=== PATIENT | female | born 1970 | race Caucasian/White ===

== ENCOUNTER 2022-03-25 11:45 | Emergency (ER) | payer OTHER ==
[~2022-03-25] VITALS: Ht 165.1 cm; Wt 66.0 kg
[~2022-03-25 11:45] MED LIST: CALC1TAB4 PO; CYCL5TAB PO; ESCI5TAB PO; ESTR1TAB98 PO; ESZO3TAB24 PO; FERR325T23 MT; FOLI20CA PO; KEPP500 PO; MAGN250T10 PO; MIRT-90 PO; NALT380S2 IM; OMEP40CA20 PO
[2022-03-25 13:15] LABS: BASOPHILS % 1.3 % (0.0-2.0); EOSINOPHILS % 4.3 % (0.0-5.0); HEMATOCRIT. 40.2 % (36.0-48.0); HEMOGLOBIN. 13.3 g/dL (12.0-16.0); MEAN CORPUSCULAR VOLUME 96.9 fL (81.0-99.0); MEAN PLATELET VOLUME 6.9 fl (7.4-10.4); MONOCYTES % 4.4 % (2.0-8.0); PLATELET 337 x1000/uL (130-400); RED BLOOD CELL COUNT 4.15 mill/uL (4.2-5.4); RED CELL DISTRIBUTION WIDTH 15.2 % (11.6-14.6)
[2022-03-25 13:22] LABS: CHLORIDE 107 mEq/L (98-107)
[2022-03-25 13:30] LABS: ETHANOL BLOOD 240 mg/dL
[2022-03-25 15:33] LABS: CLARITY URINE CLEAR (CLEAR); COLOR URINE YELLOW (YELLOW); KETONES URINE NEGATIVE (NEGATIVE); LEUKOCYTE ESTERASE URINE 1+ (NEGATIVE); NITRITE URINE NEGATIVE (NEGATIVE); OCCULT BLOOD URINE NEGATIVE (NEGATIVE); PH URINE 6.5 (4.5-8.0); PROTEIN URINE NEGATIVE (NEGATIVE); SPECIFIC GRAVITY URINE 1.004 (1.005-1.030); UROBILINOGEN URINE 0.2 E.U./dL (0.2-1.0)
[2022-03-25 15:55] LABS: *AMPHETAMINES SCREEN URINE NEGATIVE (NEGATIVE); *BARBITURATES SCREEN URINE NEGATIVE (NEGATIVE); *BENZODIAZEPINES SCREEN URINE NEGATIVE (NEGATIVE); *COCAINE SCREEN URINE NEGATIVE (NEGATIVE); CANNABINOID URINE SCREEN NEGATIVE (NEGATIVE); METHADONE URINE SCREEN NEGATIVE (NEGATIVE); OPIATES URINE SCREEN NEGATIVE (NEGATIVE); PHENCYCLIDINE URINE SCREEN NEGATIVE (NEGATIVE)
[2022-03-25] MEDS ORDERED: LORAZEPAM 2MG/ML CPJ IV NR (19:30)
[2022-03-26] MEDS ORDERED: LORAZEPAM 1MG TABLET PO ONE (12:00)
[2022-03-26] MEDS ORDERED: CHLORDIAZEPOXIDE 25MG CAPSULE PO ONE (12:45)
[2022-03-26] MEDS ORDERED: CHLORDIAZEPOXIDE 25MG CAPSULE PO NR (13:00)
[2022-03-26 15:59] VITALS: BP 151/98
[2022-03-26] MEDS ORDERED: MIRTAZAPINE 15MG TABLET PO SCH (21:00)
== END 2022-03-26 17:00 ==
LOC: ER 11:45
DX: T51.0X2A Toxic effect of ethanol, intentional self-harm, initial encounter (principal); T42.4X2A Poisoning by benzodiazepines, intentional self-harm, initial encounter; F33.1 Major depressive disorder, recurrent, moderate; F10.229 Alcohol dependence with intoxication, unspecified; Y90.8 Blood alcohol level of 240 mg/100 ml or more; R00.0 Tachycardia, unspecified; I10 Essential (primary) hypertension; Z20.822 Contact with and (suspected) exposure to COVID-19; Z63.0 Problems in relationship with spouse or partner; G40.909 Epilepsy, unspecified, not intractable, without status epilepticus; Y92.89 Other specified places as the place of occurrence of the external cause
CPT/HCPCS: 36415; 80053; 80076; 80305; 80307; 80320; 80329; 81003; 85025; 93005; 96374; 99285; C9803; J2060; U0003; U0005; G0480